=== PATIENT | male | born 1950 | race Two or more races ===

== ENCOUNTER 2024-07-31 17:48 | Emergency (ER) | payer MEDICAID, OTHER ==
[~2024-07-31] VITALS: Ht 172.7 cm; Wt 83.3 kg
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
[2024-07-31] MEDS ORDERED: ACET500T58 PO (19:48)
[2024-07-31] MEDS ORDERED: IBUP-1455 PO (19:48)
[2024-07-31 21:10] VITALS: BP 137/77; PULSE 81; RESP 20; TEMP 98; O2SAT 98
== END 2024-07-31 21:15 | disposition home or self-care (01) ==
LOC: ER 17:53
DX: S16.1XXA Strain of muscle, fascia and tendon at neck level, initial encounter (principal); M54.9 Dorsalgia, unspecified; V89.2XXA Person injured in unspecified motor-vehicle accident, traffic, initial encounter; X58.XXXA Exposure to other specified factors, initial encounter; Y93.I9 Activity, other involving external motion; Y92.488 Other paved roadways as the place of occurrence of the external cause; Y99.8 Other external cause status
CPT/HCPCS: 72040; 72070